=== PATIENT | female | born 1980 | race Hispanic/Latino ===

== ENCOUNTER 2020-11-08 15:45 | Emergency (ER) | payer MEDICAID ==
[2020-11-08 16:21] VITALS: BP 112/77
[2020-11-08 16:43] LABS: Basophils # (Auto) 0.1 K/mm3 (0.0-0.1); Basophils % (Auto) 0.6 % (0.0-1.8); Eosinophils # (Auto) 0.1 K/mm3 (0.0-0.4); Eosinophils % (Auto) 0.6 % (0.0-4.3); Hematocrit 29.8 % (30.3-42.9); Lymphocytes # (Auto) 1.4 K/mm3 (1.2-5.4); Lymphocytes % (Auto) 9.3 % (13.4-35.0); Mean Corpuscular HGB Conc 30 % (30-34); Monocytes # (Auto) 1.2 K/mm3 (0.0-0.8); Monocytes % (Auto) 8.1 % (0.0-7.3); Platelet Count 571 K/mm3 (140-440); Red Blood Count 4.44 M/mm3 (3.65-5.03); Red Cell Distribution Width 17.6 % (13.2-15.2)
[2020-11-08 16:45] LABS: Mean Corpuscular Volume 67 fl (79-97)
[2020-11-08 17:06] LABS: Alanine Aminotransferase 25 units/L (7-56); Blood Urea Nitrogen 8 mg/dL (7-17); Calcium 9.1 mg/dL (8.4-10.2); Hemolysis Index 1
[2020-11-08 17:07] LABS: BUN/Creatinine Ratio 16
[2020-11-08 17:11] LABS: Bacteria,Urine 1+ /HPF (Negative); Mucus,Urine FEW /HPF
--- NOTE | 2020-11-08 17:20 | Emergency Department Report ---
ED General Adult HPI - General Chief complaint: Abdominal Pain Stated complaint: ABD PAIN Time Seen by Provider: 11/08/20 16:59 Source: patient Mode of arrival: Ambulatory Limitations: No Limitations - History of Present Illness Initial comments: 40-year-old female patient presents with complaints of lower abdominal pain x 1 week. She does admit to vaginal discharge and urinary frequency and dysuria, but denies any hematuria, abnormal vaginal bleeding, fever/chills/sweats, nausea/vomiting/diarrhea, constipation, chest pain, or shortness of breath. Patient rates her pain as a 8/10 in severity. Past surgical history includes a . Last menstrual cycle was last week. She does admit to being currently sexually active - Related Data Allergies Allergy/AdvReac Type Severity Reaction Status Date / Time No Known Allergies Allergy Unverified 11/08/20 16:16 ED Review of Systems ROS: Stated complaint: ABD PAIN Other details as noted in HPI Constitutional: denies: chills, fever, malaise ENT: denies: throat pain Respiratory: denies: cough, shortness of breath Cardiovascular: denies: chest pain Gastrointestinal: abdominal pain. denies: nausea, vomiting, diarrhea, constipation Genitourinary: dysuria, frequency, discharge. denies: hematuria, abnormal menses Musculoskeletal: back pain Neurological: denies: headache, weakness Hematological/Lymphatic: denies: easy bleeding, swollen glands ED Past Medical Hx - Past Medical History Previous Medical History?: Yes Additional medical history: hypoglycemia - Surgical History Past Surgical History?: Yes Additional Surgical History: . kidney stone removal - Social History Smoking Status: Current Every Day Smoker Substance Use Type: None ED Physical Exam - General Limitations: No Limitations General appearance: alert, in no apparent distress - Head Head exam: Present: atraumatic, normocephalic - Eye Eye exam: Present: normal appearance. Absent: scleral icterus - Neck Neck exam: Present: full ROM - Respiratory Respiratory exam: Present: normal lung sounds bilaterally. Absent: respiratory distress - Cardiovascular Cardiovascular Exam: Present: regular rate, normal rhythm - GI/Abdominal GI/Abdominal exam: Present: soft, tenderness (Suprapubic), normal bowel sounds. Absent: distended, guarding, rebound, rigid - External exam: Present: normal external exam Speculum exam: Present: vaginal discharge. Absent: vaginal bleeding Bi-manual exam: Present: cervical motion tendernes. Absent: adnexal mass - Extremities Exam Extremities exam: Present: full ROM - Back Exam Back exam: Present: CVA tenderness (R), CVA tenderness (L) - Neurological Exam Neurological exam: Present: alert, oriented X3 - Psychiatric Psychiatric exam: Present: normal affect, normal mood - Skin Skin exam: Present: warm, dry, intact, normal color. Absent: rash, cyanosis, diaphoretic, ecchymosis ED Course Vital Signs 11/08/20 16:17 Temperature 98.2 F Pulse Rate 94 H Respiratory 16 Rate Blood Pressure 112/77 O2 Sat by Pulse 100 Oximetry ED Medical Decision Making - Lab Data Result diagrams: 11/08/20 16:34 11/08/20 16:34 Lab Results 11/08/20 11/08/20 11/08/20 Range/Units 16:26 16:34 16:34 WBC 15.0 H (4.5-11.0) K/mm3 RBC 4.44 (3.65-5.03) M/mm3 Hgb 9.0 L (10.1-14.3) gm/dl Hct 29.8 L (30.3-42.9) % MCV 67 L (79-97) fl MCH 20 L (28-32) pg MCHC 30 (30-34) % RDW 17.6 H (13.2-15.2) % Plt Count 571 H (140-440) K/mm3 Lymph % (Auto) 9.3 L (13.4-35.0) % [place] % (Auto) 8.1 H (0.0-7.3) % Eos % (Auto) 0.6 (0.0-4.3) % Baso % (Auto) 0.6 (0.0-1.8) % Lymph # (Auto) 1.4 (1.2-5.4) K/mm3 [place] # (Auto) 1.2 H (0.0-0.8) K/mm3 Eos # (Auto) 0.1 (0.0-0.4) K/mm3 Baso # (Auto) 0.1 (0.0-0.1) K/mm3 Seg Neutrophils % 81.4 H (40.0-70.0) % Seg Neutrophils # 12.2 H (1.8-7.7) K/mm3 Sodium 132 L (137-145) mmol/L Potassium 3.8 (3.6-5.0) mmol/L Chloride 98.0 (98-107) mmol/L Carbon Dioxide 27 (22-30) mmol/L Anion Gap 11 mmol/L BUN 8 (7-17) mg/dL Creatinine 0.5 L (0.6-1.2) mg/dL Estimated GFR > 60 ml/min BUN/Creatinine Ratio 16 % Glucose 92 (65-100) mg/dL Calcium 9.1 (8.4-10.2) mg/dL Total Bilirubin 0.30 (0.1-1.2) mg/dL AST 26 (5-40) units/L ALT 25 (7-56) units/L Alkaline Phosphatase 73 (35-129) units/L Total Protein 6.8 (6.3-8.2) g/dL Albumin 4.0 (3.9-5) g/dL Albumin/Globulin Ratio 1.4 % HCG, Qual (Negative) Urine Color Yellow (Yellow) Urine Turbidity Slightly-cloudy (Clear) Urine pH 6.0 (5.0-7.0) Ur Specific [place] 1.016 (1.003-1.030) Urine Protein <15 mg/dl (Negative) mg/dL Urine Glucose (UA) Neg (Negative) mg/dL Urine Ketones Neg (Negative) mg/dL Urine Blood Mod (Negative) Urine Nitrite Pos (Negative) Ur Reducing Substances Not Reportable Urine Bilirubin Neg (Negative) Urine Ictotest Not Reportable Urine Urobilinogen < 2.0 (<2.0) mg/dL Ur Leukocyte Esterase Lg (Negative) Urine WBC (Auto) 33.0 H (0.0-6.0) /HPF Urine RBC (Auto) 7.0 (0.0-6.0) /HPF U Epithel Cells (Auto) 8.0 (0-13.0) /HPF Urine Bacteria (Auto) 1+ (Negative) /HPF Urine Mucus Few /HPF Urine Yeast (Budding) 1+ /HPF 03/03/ Range/Units 16:34 WBC (4.5-11.0) K/mm3 RBC (3.65-5.03) M/mm3 Hgb (10.1-14.3) gm/dl Hct (30.3-42.9) % MCV (79-97) fl MCH (28-32) pg MCHC (30-34) % RDW (13.2-15.2) % Plt Count (140-440) K/mm3 Lymph % (Auto) (13.4-35.0) % [place] % (Auto) (0.0-7.3) % Eos % (Auto) (0.0-4.3) % Baso % (Auto) (0.0-1.8) % Lymph # (Auto) (1.2-5.4) K/mm3 [place] # (Auto) (0.0-0.8) K/mm3 Eos # (Auto) (0.0-0.4) K/mm3 Baso # (Auto) (0.0-0.1) K/mm3 Seg Neutrophils % (40.0-70.0) % Seg Neutrophils # (1.8-7.7) K/mm3 Sodium (137-145) mmol/L Potassium (3.6-5.0) mmol/L Chloride (98-107) mmol/L Carbon Dioxide (22-30) mmol/L Anion Gap mmol/L BUN (7-17) mg/dL Creatinine (0.6-1.2) mg/dL Estimated GFR ml/min BUN/Creatinine Ratio % Glucose (65-100) mg/dL Calcium (8.4-10.2) mg/dL Total Bilirubin (0.1-1.2) mg/dL AST (5-40) units/L ALT (7-56) units/L Alkaline Phosphatase (35-129) units/L Total Protein (6.3-8.2) g/dL Albumin (3.9-5) g/dL Albumin/Globulin Ratio % HCG, Qual Negative (Negative) Urine Color (Yellow) Urine Turbidity (Clear) Urine pH (5.0-7.0) Ur Specific [place] (1.003-1.030) Urine Protein (Negative) mg/dL Urine Glucose (UA) (Negative) mg/dL Urine Ketones (Negative) mg/dL Urine Blood (Negative) Urine Nitrite (Negative) Ur Reducing Substances Urine Bilirubin (Negative) Urine Ictotest Urine Urobilinogen (<2.0) mg/dL Ur Leukocyte Esterase (Negative) Urine WBC (Auto) (0.0-6.0) /HPF Urine RBC (Auto) (0.0-6.0) /HPF U Epithel Cells (Auto) (0-13.0) /HPF Urine Bacteria (Auto) (Negative) /HPF Urine Mucus /HPF Urine Yeast ([place]) /HPF - Medical Decision Making 40-year-old female patient presents with complaints of lower abdominal pain x 1 week. She does admit to vaginal discharge and urinary frequency and dysuria, but denies any hematuria, abnormal vaginal bleeding, fever/chills/sweats, nausea/vomiting/diarrhea, constipation, chest pain, or shortness of breath. Patient rates her pain as a 8/10 in severity. Past surgical history includes a . Last menstrual cycle was last week. She does admit to being currently sexually active + CMT on exam. UA shows 33 WBCs and + nitrites. CBC shows elevated WBCs at 15. No significant abnormalities noted on CMP. + CVA tenderness noted bilaterally on exam. Wet prep shows+ BV. Attempted treatment for pyelonephritis and PID, however patient eloped prior to medication administration. Contacted patient via phone and she states she eloped to go home and lay down. Explained that it was very important for patient to return to the emergency department for IV antibiotics and prescriptions for home antibiotics and further instructions for PID and pyelonephritis, patient states understanding and states she will return to the emergency department. Patient also informed that she needs a CAT scan of her abdomen to further assess her pain. Critical care attestation.: If time is entered above; I have spent that time in minutes in the direct care of this critically ill patient, excluding procedure time. ED Disposition Clinical Impression: Pyelonephritis, PID (acute pelvic inflammatory disease) Disposition: ELOPED Is pt being admited?: No Condition: Stable Instructions: Abdominal Pain (ED)
[2020-11-08 17:24] LABS: Bilirubin,Urine NEG (Negative); Blood,Urine MOD (Negative); Color,Urine Yellow (Yellow); Protein,Urine <15 mg/dL mg/dL (Negative); Urobilinogen,Urine < 2.0 mg/dL (<2.0)
[2020-11-08] MEDS ORDERED: ONDANSETRON 4 MG/2 ML INJ IV ONE (18:14)
[2020-11-08] MEDS ORDERED: MORPHINE 4 MG/1 ML INJ IV ONE (18:14)
[2020-11-08] MEDS ORDERED: cefTRIAXone/NS 1 GM/50 ML 1 GM/50 ML BAG IV ONE (18:16)
[2020-11-08] MEDS ORDERED: SODIUM CHLORIDE 0.9% 1000 ML 1,000 ML IV ONE (18:59)
== END 2020-11-08 18:15 | disposition left against medical advice (07) ==
LOC: ED 15:45
DX: N12 Tubulo-interstitial nephritis, not specified as acute or chronic (principal); N73.0 Acute parametritis and pelvic cellulitis; F17.200 Nicotine dependence, unspecified, uncomplicated; Z98.890 Other specified postprocedural states
CPT/HCPCS: 36415; 80053; 81001; 84703; 85025; 87086; 87210; 87591; 99283

== ENCOUNTER 2020-11-10 21:05 | Observation (INO) | payer MEDICAID ==
[2020-11-10 22:05] LABS: Basophils # (Auto) 0.1 K/mm3 (0.0-0.1); Basophils % (Auto) 0.7 % (0.0-1.8); Eosinophils # (Auto) 0.1 K/mm3 (0.0-0.4); Eosinophils % (Auto) 0.6 % (0.0-4.3); Hematocrit 29.9 % (30.3-42.9); Hemoglobin 9.3 gm/dl (10.1-14.3); Lymphocytes # (Auto) 1.7 K/mm3 (1.2-5.4); Lymphocytes % (Auto) 11.3 % (13.4-35.0); Mean Corpuscular HGB Conc 31 % (30-34); Monocytes # (Auto) 1.9 K/mm3 (0.0-0.8); Monocytes % (Auto) 12.2 % (0.0-7.3); Platelet Count 536 K/mm3 (140-440); Red Blood Count 4.55 M/mm3 (3.65-5.03); Red Cell Distribution Width 17.2 % (13.2-15.2)
[2020-11-10 22:11] LABS: Mean Corpuscular Volume 66 fl (79-97)
[2020-11-10 22:25] LABS: Alanine Aminotransferase 20 units/L (7-56); Albumin 3.8 g/dL (3.9-5); Blood Urea Nitrogen 6 mg/dL (7-17); Calcium 9.2 mg/dL (8.4-10.2); Hemolysis Index 5
[2020-11-10 22:26] LABS: BUN/Creatinine Ratio 10
[2020-11-11 00:18] LABS: Bilirubin,Urine NEG (Negative); Blood,Urine LG (Negative); Color,Urine Yellow (Yellow); Mucus,Urine 1+ /HPF; Urobilinogen,Urine < 2.0 mg/dL (<2.0)
[2020-11-11 00:19] LABS: RBC,Urine > 182.0 /HPF (0.0-6.0)
[2020-11-11] MEDS ORDERED: ONDANSETRON 4 MG/2 ML INJ IV ONE (00:39)
[2020-11-11] MEDS ORDERED: SODIUM CHLORIDE 0.9% 1000 ML 1,000 ML IV ONE (00:39)
[2020-11-11] MEDS ORDERED: MORPHINE 4 MG/1 ML INJ IV ONE (00:39)
--- NOTE | 2020-11-11 02:01 | Cat Scan Report ---
CT abdomen pelvis w con INDICATION: severe lower abdominal pain leukocytosis. TECHNIQUE: All CT scans at this location are performed using the following dose modulation technique: Automated exposure control. CONTRAST: Omnipaque 300, 100 cc IV injection. COMPARISON: None available. CT ABDOMEN: Evaluation of the parenchymal organs demonstrates a subcentimeter low-density lesion at t he right hepatic lobe. The remaining parenchymal organs are unremarkable. Negative for abdominal mass, fluid or inflammation. The bowel is not dilated or thickened. Mildly pro minent nodes are seen adjacent to the aorta. CT PELVIS: Tubular fluid-filled structures are seen bilaterally right greater than left at the adnexa . These are thought to be dilated fallopian tubes. The tube on the right has a maximal length of 10 c m and is focally thickened measuring 3.3 cm. There is inflammation seen throughout the pelvis diffuse ly. What is thought to be a portion of a normal appendix is identified. The uterus contains an IUD. IMPRESSION: 1. Fluid-filled structures at the adnexa bilaterally with diffuse pelvic inflammation. Pelvic inflamm atory disease with tubal involvement right greater than left is suspected. 2. Small liver lesion is not well characterized but likely incidental. 3. Mild retroperitoneal adenopathy may be reactive. Signer Name: Naseem Hoffman MD Signed: 11/11/2020 1:57 AM Workstation Name: [id number]
--- NOTE | 2020-11-11 02:27 | Emergency Department Report ---
ED Abdominal Pain HPI - General Chief Complaint: Abdominal Pain Stated Complaint: ABDOMINAL PAIN PUI?: No Time Seen by Provider: 11/11/20 00:25 Source: patient Mode of arrival: Ambulatory Limitations: No Limitations - History of Present Illness Initial Comments: Chief complaint: Abdominal pain HPI: This is a healthy 40-year-old female who was at 3 days of abdominal pain. Right lower quadrant left lower quadrant radiating to lower back. She was seen 2 days ago. She eloped without completing treatment. She has cramping 8 or 9 intermittent abdominal pain. She initially had vaginal discharge. She now has vaginal bleeding. She has IUD in place. IUD has been in place for 18 years. The IUD was recommended to stay in for only 10 years. Patient has had chills. She has had 2 days of diarrhea. Pain is worse with walking. When a car hits a bump in a row, the pain is worse. She has to walk slowly in order to avoid severe pain MD Complaint: abdominal pain -: Gradual, days(s) (3) Location: LLQ Radiation: back Severity scale (0 -10): 9 Quality: cramping Consistency: constant Improves With: nothing Worsens With: movement Associated Symptoms: diarrhea - Related Data Allergies Allergy/AdvReac Type Severity Reaction Status Date / Time No Known Allergies Allergy Unverified 11/08/20 16:16 ED Review of Systems ROS: Stated complaint: ABDOMINAL PAIN Other details as noted in HPI Comment: All other systems reviewed and negative Constitutional: chills. denies: fever, malaise Gastrointestinal: abdominal pain, diarrhea Genitourinary: discharge ED Past Medical Hx - Past Medical History Previous Medical History?: Yes Additional medical history: hypoglycemia - Surgical History Past Surgical History?: Yes Additional Surgical History: . kidney stone removal - Social History Smoking Status: Current Every Day Smoker Substance Use Type: Alcohol ED Physical Exam - General Limitations: No Limitations General appearance: alert, in no apparent distress, other (Nontoxic-appearing but appears uncomfortable especially with position change) - Head Head exam: Present: atraumatic, normocephalic - Eye Eye exam: Present: normal appearance - ENT ENT exam: Present: mucous membranes moist - Neck Neck exam: Present: normal inspection, full ROM - Respiratory Respiratory exam: Present: normal lung sounds bilaterally. Absent: respiratory distress, wheezes, rales, rhonchi - Cardiovascular Cardiovascular Exam: Present: normal rhythm, tachycardia, normal heart sounds. Absent: systolic murmur, diastolic murmur, rubs, gallop - GI/Abdominal GI/Abdominal exam: Present: soft, tenderness, normal bowel sounds. Absent: distended, guarding, rebound - Extremities Exam Extremities exam: Present: normal inspection - Neurological Exam Neurological exam: Present: alert, oriented X3 - Psychiatric Psychiatric exam: Present: normal affect, normal mood - Skin Skin exam: Present: warm, dry, intact, normal color. Absent: rash ED Course Vital Signs 11/10/20 11/11/20 11/11/20 21:50 00:32 00:50 Temperature 98.4 F Pulse Rate 106 H 98 H Respiratory 16 16 16 Rate Blood Pressure 112/81 Blood Pressure 99/63 [Left] O2 Sat by Pulse 100 100 Oximetry 11/11/20 02:03 Temperature Pulse Rate 89 Respiratory 16 Rate Blood Pressure Blood Pressure 109/70 [Left] O2 Sat by Pulse 98 Oximetry ED Medical Decision Making - Lab Data Result diagrams: 11/10/20 21:53 11/10/20 21:53 - Medical Decision Making Clinical Impression: PID with severe pain, confirmed by CT scan, Complicated by IUD which has been in place for 18 years Bilingual Customer Service Specialist Dr. Leary will see patient in consult Patient is admitted to hospitalist service Critical care attestation.: If time is entered above; I have spent that time in minutes in the direct care of this critically ill patient, excluding procedure time. ED Disposition Clinical Impression: PID (acute pelvic inflammatory disease), IUD (intrauterine device) in place Disposition: OP ADMIT IP TO THIS HOSP Is pt being admited?: Yes Does the pt Need Aspirin: No Condition: Stable Instructions: Abdominal Pain (ED)
[2020-11-11] MEDS ORDERED: DOXYCYCLINE 100 MG CAP PO ONE (02:31)
[2020-11-11] MEDS ORDERED: CEFEPIME/NS 2 GM/100 ML 2 GM/100 ML BAG IV ONE (02:31)
--- NOTE | 2020-11-11 03:39 | Ultrasound Report ---
PELVIC ULTRASOUND HISTORY: Pelvic inflammatory disease. COMPARISON: CT examination earlier the same day. PROCEDURE: Uterus measures 10.6 x 5.3 x 7.4 cm. The endometrial cavity is filled by an IUD. No intrac avitary fluid is present. Right ovary measures 7.4 x 3.9 x 5.2 cm. 2 cysts are identified measuring 3.5 and 2 cm. A 2 cm cyst a ppears complex. Left ovary measures 6 x 4.6 x 4.4 cm. Several cysts are present with the larger measuring 2.5 and 2.4 cm. A small amount of free fluid is seen at the cul-de-sac. IMPRESSION: 1. Uterus unremarkable in appearance. 2. Ovaries are prominent contain cysts. The areas that are thought to be fluid-filled fallopian tubes by CT are not well seen with ultrasound. Signer Name: Naseem Hoffman MD Signed: 11/11/2020 3:35 AM Workstation Name: [id number]
--- NOTE | 2020-11-11 03:56 | History and Physical Report ---
History of Present Illness Date of examination: 11/11/20 Date of admission: 11/11/20 02:36 Chief complaint: pelvis pain History of present illness: HPI: This is a healthy 40-year-old female who was at 3 days of abdominal pain. Right lower quadrant left lower quadrant radiating to lower back. She was seen 2 days ago. She eloped without completing treatment. She has cramping 8 or 9 intermittent abdominal pain. She initially had vaginal discharge. She is alre helen on has vaginal bleeding. She has IUD in place. IUD has been in place for 18 years. The IUD was recommended to stay in for only 10 years. Patient has had chills. She has had 2 days of diarrhea. Pain is worse with walking. When a car hits a bump in a row, the pain is worse. She has to walk slowly in order to avoid severe pain ED work-up shows WBC 15.4, hemoglobin 9.3 sodium, 131, potassium 3.5, creatinine 0.6 Platelets 536, glucose 105, urine WBC 60 ultrasound of the abdomen showed fluid favored structure at the adnexa bilaterally with diffuse pelvic inflammatory process. Patient seen in ED at bedside. She reports abdominal pain that is ongoing. She reported a history of IUD placement 18 years ago and have not been removed. Reviewed lab, medication administration record, and vital signs. CUTTING MACHINE OFFBEARER and ID consulted elevated WBC. Past History Past Medical History: hypertension Past Surgical History: denies: hysterectomy, hernia repair Social history: smoking. denies: alcohol abuse, IV drug use Family history: no significant family history Medications and Allergies Allergies Allergy/AdvReac Type Severity Reaction Status Date / Time No Known Allergies Allergy Unverified 11/08/20 16:16 Review of Systems Constitutional: no malaise Ears, nose, mouth and throat: no epistaxis Cardiovascular: no claudication Respiratory: no congestion Gastrointestinal: abdominal pain Genitourinary Female: no dyspareunia Menstruation: no currently menstrual Musculoskeletal: no muscle weakness Integumentary: no rash, no pruritis Neurological: no head injury Exam - Constitutional Vitals: Temp Pulse Resp BP Pulse Ox 98.4 F 89 16 109/70 98 11/10/20 21:50 11/11/20 02:03 11/11/20 02:03 11/11/20 02:03 11/11/20 02:03 General appearance: Present: mild distress, well-nourished - EENT Eyes: Present: PERRL ENT: hearing intact, clear oral mucosa - Neck Neck: Present: supple, normal ROM - Respiratory Respiratory effort: normal Respiratory: bilateral: CTA - Cardiovascular Heart rate: 82 Heart Sounds: Present: S1 & S2. Absent: rub, click - Extremities Extremities: pulses symmetrical, No edema Peripheral Pulses: within normal limits - Abdominal General gastrointestinal: Present: soft, tender, non-distended, normal bowel sounds Female genitourinary: Present: normal - Integumentary Integumentary: Present: clear, warm, dry - Musculoskeletal Musculoskeletal: gait normal, strength equal bilaterally - Psychiatric Psychiatric: appropriate mood/affect, intact judgment & insight, cooperative - Neurologic Neurologic: CNII-XII intact, moves all extremities - Allied Health Allied health notes reviewed: nursing Results - Labs CBC & Chem 7: 11/10/20 21:53 11/10/20 21:53 Labs: Abnormal lab results 11/10/20 11/10/20 11/10/20 Range/Units 21:52 21:53 21:53 WBC 15.4 H (4.5-11.0) K/mm3 Hgb 9.3 L (10.1-14.3) gm/dl Hct 29.9 L (30.3-42.9) % MCV 66 L (79-97) fl MCH 21 L (28-32) pg RDW 17.2 H (13.2-15.2) % Plt Count 536 H (140-440) K/mm3 Lymph % (Auto) 11.3 L (13.4-35.0) % [place] % (Auto) 12.2 H (0.0-7.3) % [place] # (Auto) 1.9 H (0.0-0.8) K/mm3 Seg Neutrophils % 75.2 H (40.0-70.0) % Seg Neutrophils # 11.6 H (1.8-7.7) K/mm3 Sodium 131 L (137-145) mmol/L Potassium 3.5 L (3.6-5.0) mmol/L Chloride 96.7 L (98-107) mmol/L BUN 6 L (7-17) mg/dL Glucose 105 H (65-100) mg/dL Albumin 3.8 L (3.9-5) g/dL Urine WBC (Auto) 60.0 H (0.0-6.0) /HPF Assessment and Plan - Patient Problems (1) PID (acute pelvic inflammatory disease) Current Visit: Yes Status: Acute Plan to address problem: Continue IV antibiotics ID consult with. Blood culture ordered follow-up with results CT of the abdomen/pelvis shows fluid-filled structure at the adnexa bilaterally with diffuse pelvis inflammation. (2) Pyelonephritis Current Visit: No Status: Acute Plan to address problem: Urine culture Continue IV antibiotic (3) Tobacco use Current Visit: Yes Status: Acute Plan to address problem: Discussed tobacco use cessation Cardiovascular and neoplasm syndrome of tobacco use explained to patient (4) IUD (intrauterine device) in place Current Visit: Yes Status: Acute Plan to address problem: Patient has reports history of IUD placement 18 years ago CUTTING MACHINE OFFBEARER consulted (5) DVT prophylaxis Current Visit: Yes Status: Acute Plan to address problem: Subcutaneous Lovenox
[2020-11-11] MEDS ORDERED: MAGNESIUM HYDROXIDE (MOM) ORAL LIQD UDC PO PRN (04:04)
[2020-11-11] MEDS ORDERED: SENNOSIDES 8.6 MG TAB PO PRN (04:04)
[2020-11-11] MEDS ORDERED: HYDROmorphone 1 MG/1 ML INJ IV PRN (04:04)
[2020-11-11] MEDS ORDERED: ONDANSETRON 4 MG/2 ML INJ IV PRN (04:04)
[2020-11-11] MEDS ORDERED: ACETAMINOPHEN 325 MG TAB PO PRN ×2 (04:04)
[2020-11-11] MEDS ORDERED: SODIUM CHLORIDE 0.9% 1000 ML 1,000 ML IV SCH (04:15)
[2020-11-11] MEDS ORDERED: CEFEPIME/NS 2 GM/100 ML 2 GM/100 ML BAG IV SCH (06:00)
--- NOTE | 2020-11-11 08:58 | Progress Note ---
Assessment and Plan Assessment and plan: PID. CT scan reveals fluid-filled structures in the adnexa bilaterally with diffuse pelvic inflammatory disease with tubal involvement right greater than left. Patient also with associated mild retroperitoneal reactive adenopathy Acute cystitis. Sepsis. Patient meets criteria given the leukocytosis, tachycardia and diagnosis of cystitis/PID. 11/11/2020. Continue sepsis protocol. Follow-up blood and urine cultures. Continue IV antibiotics. Consult ID and PLAYER SERVICES REPRESENTATIVE for further evaluation. History Interval history: 40-year-old with abdominal and back pain. Hospitalist Physical - Constitutional Vitals: Temp Pulse Resp BP Pulse Ox 98.4 F 89 16 106/64 98 11/11/20 06:42 11/11/20 06:42 11/11/20 06:42 11/11/20 06:42 11/11/20 06:42 General appearance: Present: mild distress, well-nourished - EENT Eyes: Present: PERRL, EOM intact ENT: hearing intact, clear oral mucosa, dentition normal - Neck Neck: Present: supple, normal ROM - Respiratory Respiratory effort: normal Respiratory: bilateral: CTA - Cardiovascular Rhythm: regular Heart Sounds: Present: S1 & S2. Absent: gallop, rub - Extremities Extremities: no ischemia, No edema, Full ROM - Abdominal General gastrointestinal: soft, non-tender, non-distended, normal bowel sounds - Integumentary Integumentary: Present: clear, warm, dry - Neurologic Neurologic: CNII-XII intact, moves all extremities Results - Labs CBC & Chem 7: 11/10/20 21:53 11/10/20 21:53 Labs: Laboratory Last Values WBC 15.4 K/mm3 (4.5-11.0) H 11/10/20 21:53 RBC 4.55 M/mm3 (3.65-5.03) 11/10/20 21:53 Hgb 9.3 gm/dl (10.1-14.3) L 11/10/20 21:53 Hct 29.9 % (30.3-42.9) L 11/10/20 21:53 MCV 66 fl (79-97) L 11/10/20 21:53 MCH 21 pg (28-32) L 11/10/20 21:53 MCHC 31 % (30-34) 11/10/20 21:53 RDW 17.2 % (13.2-15.2) H 11/10/20 21:53 Plt Count 536 K/mm3 (140-440) H 11/10/20 21:53 Lymph % (Auto) 11.3 % (13.4-35.0) L 11/10/20 21:53 Jewell % (Auto) 12.2 % (0.0-7.3) H 11/10/20 21:53 Eos % (Auto) 0.6 % (0.0-4.3) 11/10/20 21:53 Baso % (Auto) 0.7 % (0.0-1.8) 11/10/20 21:53 Lymph # (Auto) 1.7 K/mm3 (1.2-5.4) 11/10/20 21:53 Jewell # (Auto) 1.9 K/mm3 (0.0-0.8) H 11/10/20 21:53 Eos # (Auto) 0.1 K/mm3 (0.0-0.4) 11/10/20 21:53 Baso # (Auto) 0.1 K/mm3 (0.0-0.1) 11/10/20 21:53 Seg Neutrophils % 75.2 % (40.0-70.0) H 11/10/20 21:53 Seg Neutrophils # 11.6 K/mm3 (1.8-7.7) H 11/10/20 21:53 Sodium 131 mmol/L (137-145) L 11/10/20 21:53 Potassium 3.5 mmol/L (3.6-5.0) L 11/10/20 21:53 Chloride 96.7 mmol/L (98-107) L 11/10/20 21:53 Carbon Dioxide 24 mmol/L (22-30) 11/10/20 21:53 Anion Gap 14 mmol/L 11/10/20 21:53 BUN 6 mg/dL (7-17) L 11/10/20 21:53 Creatinine 0.6 mg/dL (0.6-1.2) 11/10/20 21:53 Estimated GFR > 60 ml/min 11/10/20 21:53 BUN/Creatinine Ratio 10 % 11/10/20 21:53 Glucose 105 mg/dL (65-100) H 11/10/20 21:53 Calcium 9.2 mg/dL (8.4-10.2) 11/10/20 21:53 Total Bilirubin 0.20 mg/dL (0.1-1.2) 11/10/20 21:53 AST 12 units/L (5-40) 11/10/20 21:53 ALT 20 units/L (7-56) 11/10/20 21:53 Alkaline Phosphatase 97 units/L (35-129) 11/10/20 21:53 Total Protein 6.7 g/dL (6.3-8.2) 11/10/20 21:53 Albumin 3.8 g/dL (3.9-5) L 11/10/20 21:53 Albumin/Globulin Ratio 1.3 % 11/10/20 21:53 Lipase 13 units/L (13-60) 11/10/20 21:53 HCG, Qual Negative (Negative) 11/10/20 21:53 Urine Color Yellow (Yellow) 11/10/20 21:52 Urine Turbidity Turbid (Clear) 11/10/20 21:52 Urine pH 6.0 (5.0-7.0) 11/10/20 21:52 Ur Specific [place] 1.023 (1.003-1.030) 11/10/20 21:52 Urine Protein 100 mg/dl mg/dL (Negative) 11/10/20 21:52 Urine Glucose (UA) 50 mg/dL (Negative) 11/10/20 21:52 Urine Ketones 20 mg/dL (Negative) 11/10/20 21:52 Urine Blood Lg (Negative) 11/10/20 21:52 Urine Nitrite Neg (Negative) 11/10/20 21:52 Urine Bilirubin Neg (Negative) 11/10/20 21:52 Urine Urobilinogen < 2.0 mg/dL (<2.0) 11/10/20 21:52 Ur Leukocyte Esterase Neg (Negative) 11/10/20 21:52 Urine WBC (Auto) 60.0 /HPF (0.0-6.0) H 11/10/20 21:52 Urine RBC (Auto) > 182.0 /HPF (0.0-6.0) 11/10/20 21:52 U Epithel Cells (Auto) 1.0 /HPF (0-13.0) 11/10/20 21:52 Urine Mucus 1+ /HPF 11/10/20 21:52 Urine Yeast (Budding) 1+ /HPF 11/10/20 21:52 Blood Type A POSITIVE 11/11/20 05:30 Antibody Screen Negative 11/11/20 05:30 Microbiology: Microbiology 11/11/20 05:29 Peripheral/Venous Blood Culture - Preliminary Culture in Progress 11/11/20 05:32 Peripheral/Venous Blood Culture - Preliminary Culture in Progress Active Medications - Current Medications Current Medications: Generic Name Dose Route Start Last Admin Trade Name Freq PRN Reason Stop Dose Admin Acetaminophen 650 mg 11/11/20 04:04 Acetaminophen 325 Mg Tab PO Q4H PRN Pain MILD(1-3)/Fever >100.5/CUEVA Famotidine 20 mg 11/11/20 10:00 Famotidine 20 Mg Tab PO BID JANAK Hydromorphone HCl 0.25 mg 11/11/20 04:04 Hydromorphone 1 Mg/1 Ml Inj IV Q4H PRN Pain, Moderate (4-6) Sodium Chloride 1,000 mls @ 100 mls/hr 11/11/20 04:15 Nacl 0.9% 1000 Ml IV DIRECT JANAK Cefepime HCl 2 gm in 100 mls @ 200 mls/hr 11/11/20 06:00 Cefepime/Ns 2 Gm/100 Ml IV Q12H JANAK Protocol Doxycycline Hyclate 100 mg/ 250 mls @ 250 mls/hr 11/11/20 10:00 Sodium Chloride IV Q12HR JANAK Protocol Magnesium Hydroxide 30 ml 11/11/20 04:04 Magnesium Hydroxide (Mom) Oral Liqd Udc PO Q4H PRN Constipation Ondansetron HCl 4 mg 11/11/20 04:04 Ondansetron 4 Mg/2 Ml Inj IV Q8H PRN Nausea And Vomiting Senna 8.6 mg 11/11/20 04:04 Sennosides 8.6 Mg Tab PO Q12HR PRN Constipation
[2020-11-11] MEDS ORDERED: DOXYCYCLINE HYCLATE 100 MG in SODIUM CHLORIDE 0.9% 250ML 250 ML IV SCH (10:00)
[2020-11-11] MEDS ORDERED: FAMOTIDINE 20 MG TAB PO SCH (10:00)
--- NOTE | 2020-11-11 12:48 | Consultation ---
History of Present Illness Consult date: 11/11/20 Reason for consult: pelvic pain History of present illness: 40y/o female who presents to the ED with the complaint of lower abdominal pain and vaginal discharge. CT scan findings consistent with PID. Patient has a retained IUD that has exceeded its effectiveness. She reports feeling better today. Denies any nausea or vomiting Medications and Allergies Allergies Allergy/AdvReac Type Severity Reaction Status Date / Time No Known Allergies Allergy Unverified 11/08/20 16:16 Home Medications Medication Instructions Recorded Confirmed Last Taken Type Doxycycline Hyclate [Doxycycline 100 mg PO BID #28 tablet 11/11/20 Unknown Rx Hyclate TAB] metroNIDAZOLE [Flagyl] 500 mg PO Q12HR #28 tab 11/11/20 Unknown Rx Active Meds: Active Medications Acetaminophen (Acetaminophen 325 Mg Tab) 650 mg PO Q4H PRN PRN Reason: Pain MILD(1-3)/Fever >100.5/CUEVA Famotidine (Famotidine 20 Mg Tab) 20 mg PO BID JANAK Last Admin: 11/11/20 09:24 Dose: 20 mg Documented by: Hydromorphone HCl (Hydromorphone 1 Mg/1 Ml Inj) 0.25 mg IV Q4H PRN PRN Reason: Pain, Moderate (4-6) Sodium Chloride (Nacl 0.9% 1000 Ml) 1,000 mls @ 100 mls/hr IV DIRECT JANAK Last Admin: 11/11/20 09:23 Dose: 100 mls/hr Documented by: Cefepime HCl (Cefepime/Ns 2 Gm/100 Ml) 2 gm in 100 mls @ 200 mls/hr IV Q12H JANAK; Protocol Last Infusion: 11/11/20 09:59 Dose: Infused Documented by: Doxycycline Hyclate 100 mg/ (Sodium Chloride) 250 mls @ 250 mls/hr IV Q12HR JANAK; Protocol Last Infusion: 11/11/20 11:30 Dose: Infused Documented by: Magnesium Hydroxide (Magnesium Hydroxide (Mom) Oral Liqd Udc) 30 ml PO Q4H PRN PRN Reason: Constipation Ondansetron HCl (Ondansetron 4 Mg/2 Ml Inj) 4 mg IV Q8H PRN PRN Reason: Nausea And Vomiting Senna (Sennosides 8.6 Mg Tab) 8.6 mg PO Q12HR PRN PRN Reason: Constipation Review of Systems Genitourinary: pelvic pain - Vital Signs Vital signs: Vital Signs Temp Pulse Resp BP Pulse Ox 98.4 F 106 H 16 112/81 100 11/10/20 21:50 11/10/20 21:50 11/10/20 21:50 11/10/20 21:50 11/10/20 21:50 Temp Pulse Resp BP Pulse Ox 98.4 F 89 16 106/64 98 11/11/20 06:42 11/11/20 06:42 11/11/20 06:42 11/11/20 06:42 11/11/20 06:42 - Physical Exam Breasts: Positive: deferred Cardiovascular: Regular rate Lungs: Positive: Clear to auscultation Results Result Diagrams: 11/10/20 21:53 11/10/20 21:53 Abnormal lab results 11/10/20 11/10/20 11/10/20 Range/Units 21:52 21:53 21:53 WBC 15.4 H (4.5-11.0) K/mm3 Hgb 9.3 L (10.1-14.3) gm/dl Hct 29.9 L (30.3-42.9) % MCV 66 L (79-97) fl MCH 21 L (28-32) pg RDW 17.2 H (13.2-15.2) % Plt Count 536 H (140-440) K/mm3 Lymph % (Auto) 11.3 L (13.4-35.0) % [place] % (Auto) 12.2 H (0.0-7.3) % [place] # (Auto) 1.9 H (0.0-0.8) K/mm3 Seg Neutrophils % 75.2 H (40.0-70.0) % Seg Neutrophils # 11.6 H (1.8-7.7) K/mm3 Sodium 131 L (137-145) mmol/L Potassium 3.5 L (3.6-5.0) mmol/L Chloride 96.7 L (98-107) mmol/L BUN 6 L (7-17) mg/dL Glucose 105 H (65-100) mg/dL Albumin 3.8 L (3.9-5) g/dL Urine WBC (Auto) 60.0 H (0.0-6.0) /HPF All other labs normal. Assessment and Plan - Patient Problems (1) PID (acute pelvic inflammatory disease) Current Visit: Yes Status: Acute Plan to address problem: patient is stable to continue remainder of treatment as outpatient prescriptions placed on chart patient may followup with PCP or our practice in 1-2 weeks
[2020-11-11 13:05] VITALS: BP 113/73
--- NOTE | 2020-11-11 13:55 | Consultation ---
History of Present Illness - Reason for Consult Consult date: 11/11/20 - History of Present Illness 40 female no past medical history admitted with abdominal pain. This began 3 days prior to admission and is located in the right lower quadrant and radiates to her lower back. She was initially seen 2 days ago but eloped without completing her treatment. She initially had some vaginal discharge and has some vaginal bleeding. She does have an IUD in place that has been in place for 18 years. Afebrile with a white count of 15.4. Blood cultures currently pending. Wet prep with no trichomonas, no yeast, greater than or equal to 20% clue cells urine cultures no growth so far. Imaging personally reviewed: CT abdomen pelvis: Fluid-filled structures of the adnexa bilaterally with diffu se pelvic inflammation. Retroperitoneal adenopathy. Transvaginal ultrasound: Uterus unremarkable. Review of Systems: Bold if positive, otherwise negative General: fevers, chills, rigors HEENT: visual disturbance, diplopia, eye pain Respiratory: cough, sputum, hemoptysis, shortness of breath Cardiovascular: chest pain, syncope Gastrointestinal: nausea, vomiting, diarrhea, abdominal pain Genitourinary: dysuria, hematuria, flank pain Musculoskeletal: neck pain, back pain, joint pain, edema Neurologic: headaches, seizures Hematologic: easy bruising or bleeding Endocrine: night sweats, acute weight loss Skin: rash, jaundice, redness Psychiatric: suicidal, homicidal ideation Past History Past Medical History: hypertension Past Surgical History: denies: hysterectomy, hernia repair Social history: smoking. denies: alcohol abuse, IV drug use Family history: no significant family history Medications and Allergies Allergies Allergy/AdvReac Type Severity Reaction Status Date / Time No Known Allergies Allergy Unverified 11/08/20 16:16 Home Medications Medication Instructions Recorded Confirmed Last Taken Type Doxycycline Hyclate [Doxycycline 100 mg PO BID #28 tablet 11/11/20 Unknown Rx Hyclate TAB] HYDROcodone/APAP 5-325 [[place] 1 each PO Q6HR PRN #15 tablet 11/11/20 Unknown Rx 5/325] Ibuprofen [Motrin] 800 mg PO Q8HR PRN #30 tablet 11/11/20 Unknown Rx metroNIDAZOLE [Flagyl] 500 mg PO Q12HR #28 tab 11/11/20 Unknown Rx Active Meds: Active Medications Acetaminophen (Acetaminophen 325 Mg Tab) 650 mg PO Q4H PRN PRN Reason: Pain MILD(1-3)/Fever >100.5/CUEVA Famotidine (Famotidine 20 Mg Tab) 20 mg PO BID [facility] Last Admin: 11/11/20 09:24 Dose: 20 mg Documented by: Hydromorphone HCl (Hydromorphone 1 Mg/1 Ml Inj) 0.25 mg IV Q4H PRN PRN Reason: Pain, Moderate (4-6) Sodium Chloride (Nacl 0.9% 1000 Ml) 1,000 mls @ 100 mls/hr IV DIRECT JANAK Last Admin: 11/11/20 09:23 Dose: 100 mls/hr Documented by: Cefepime HCl (Cefepime/Ns 2 Gm/100 Ml) 2 gm in 100 mls @ 200 mls/hr IV Q12H JANAK; Protocol Last Infusion: 11/11/20 09:59 Dose: Infused Documented by: Doxycycline Hyclate 100 mg/ (Sodium Chloride) 250 mls @ 250 mls/hr IV Q12HR JANAK; Protocol Last Infusion: 11/11/20 11:30 Dose: Infused Documented by: Magnesium Hydroxide (Magnesium Hydroxide (Mom) Oral Liqd Udc) 30 ml PO Q4H PRN PRN Reason: Constipation Ondansetron HCl (Ondansetron 4 Mg/2 Ml Inj) 4 mg IV Q8H PRN PRN Reason: Nausea And Vomiting Senna (Sennosides 8.6 Mg Tab) 8.6 mg PO Q12HR PRN PRN Reason: Constipation Physical Examination - Physical Exam Narrative exam: Physical Exam: Constitutional: Alert, cooperative. No acute distress Head, Ears, Nose: Normocephalic, atraumatic. External ears, nose normal Eyes: Conjunctivae/corneas clear. No icterus. No ptosis. Neck: Supple, no meningeal signs Oral: dentition fair, no thrush Cardiovascular: S1, S2 normal. Respiratory: Good air entry, clear to auscultation bilaterally GI: Soft, +tender; bowel sounds normal. No peritoneal signs. Musculoskeletal: No pedal edema, no cyanosis. Skin: No rash or abscess Hem/Lymphatic: No palpable cervical or supraclavicular nodes. No lymphangitis Psych: Mood ok. Affect normal Neurological: Awake, alert, oriented. No gross abnormality - Constitutional Vitals: Vital Signs Temp Pulse Resp BP Pulse Ox 98.1 F 89 20 113/73 99 11/11/20 12:05 11/11/20 12:05 11/11/20 12:05 11/11/20 12:05 11/11/20 12:05 Temperature -Last 24 Hours Temperature 98.1 F Temperature 98.4 F Temperature 98.4 F Temperature 97.9 F Temperature 98.4 F Results - Labs CBC & Chem 7: 11/10/20 21:53 11/10/20 21:53 Labs: Abnormal lab results 11/10/20 11/10/20 11/10/20 Range/Units 21:52 21:53 21:53 WBC 15.4 H (4.5-11.0) K/mm3 Hgb 9.3 L (10.1-14.3) gm/dl Hct 29.9 L (30.3-42.9) % MCV 66 L (79-97) fl MCH 21 L (28-32) pg RDW 17.2 H (13.2-15.2) % Plt Count 536 H (140-440) K/mm3 Lymph % (Auto) 11.3 L (13.4-35.0) % [place] % (Auto) 12.2 H (0.0-7.3) % [place] # (Auto) 1.9 H (0.0-0.8) K/mm3 Seg Neutrophils % 75.2 H (40.0-70.0) % Seg Neutrophils # 11.6 H (1.8-7.7) K/mm3 Sodium 131 L (137-145) mmol/L Potassium 3.5 L (3.6-5.0) mmol/L Chloride 96.7 L (98-107) mmol/L BUN 6 L (7-17) mg/dL Glucose 105 H (65-100) mg/dL Albumin 3.8 L (3.9-5) g/dL Urine WBC (Auto) 60.0 H (0.0-6.0) /HPF Assessment and Plan Cultures: Blood culture no growth so far Urine culture no growth Wet prep with clue cells A/P: 40-year-old female no past medical history admitted with pelvic inf lammatory disease #Acute sepsis: Present with tachycardia and leukocytosis. Secondary to pelvic inflammatory disease #Pelvic inflammatory disease: Associated with IUD in place for 18 years. Maxwell scales on wet prep associated bacterial vaginosis #Bacterial vaginosis Recs: -Recommend removal of IUD given infection -Ordered urinary gonorrhea and chlamydia -De-escalate cefepime to ceftriaxone 2 g every 24 hours -Continue doxycycline -Added metronidazole for bacterial vaginosis -Follow white count Thank you for the consult, we will continue to follow. Nicole Rendon MD [facility] O: [phone] F: [phone]
[2020-11-11] MEDS ORDERED: metroNIDAZOLE/NS 500 MG/100 ML 500 MG/100 ML BAG IV SCH (15:00)
[2020-11-11] MEDS ORDERED: cefTRIAXone/NS 2 GM/100 ML 2 GM/100 ML BAG IV SCH (15:00)
--- NOTE | 2020-11-13 09:57 | Discharge Summary ---
Providers - Providers Date of Admission: 11/11/20 02:36 Date of discharge: 11/11/20 Attending physician: MACIEJ WOOD 11/11/20 02:34 Consult to Physician [CONS] Stat Comment: Dr. Abdul spoke with Dr. Leary @ 0232 Consulting Provider: XAVI MIRANDA Physician Instructions: Reason For Exam: PID IUD in place 11/11/20 08:58 Consult to Physician [CONS] Routine Comment: Consulting Provider: DONNA VELAZQUEZ Physician Instructions: Reason For Exam: PID Primary care physician: [facility] MD [facility] Hospitalization Reason for admission: Sepsis, PID Condition: Stable Hospital course: 40 female no past medical history admitted with abdominal pain. This began 3 days prior to admission and is located in the right lower quadrant and radiates to her lower back. She was initially seen 2 days ago but eloped without completing her treatment. She initially had some vaginal discharge and has some vaginal bleeding. She does have an IUD in place that has been in place for 18 years. Afebrile with a white count of 15.4. Blood cultures currently pending. Wet prep with no trichomonas, no yeast, greater than or equal to 20% clue cells urine cultures no growth so far. Imaging personally reviewed: CT abdomen pelvis: Fluid-filled structures of the adnexa bilaterally with diffuse pelvic inflammation. Retroperitoneal adenopathy. Transvaginal ultrasound: Uterus unremarkable. The patient was admitted with diagnosis of acute sepsis secondary to pelvic inflammatory disease and bacterial vaginosis. Recommendations were for removal of IUD and continued antibiotics IV per ID recommendations. Unfortunately patient left AMA prior to completion of treatment and procedures. Dedicated discharge time 32 minutes Disposition: [id number] LEFT AGAINST MED ADVICE Core Measure Documentation - Palliative Care Palliative Care/ Comfort Measures: Not Applicable - Core Measures Any of the following diagnoses?: none Exam - Constitutional Vitals: Temp Pulse Resp BP Pulse Ox 98.1 F 89 20 113/73 99 11/11/20 12:05 11/11/20 12:05 11/11/20 12:05 11/11/20 12:05 11/11/20 12:05 Plan Follow up with: SIDRA BARRETT MD [Primary Care Provider] - 7 Days Prescriptions: Doxycycline Hyclate [Doxycycline Hyclate TAB] 100 mg PO BID #28 tablet metroNIDAZOLE [Flagyl] 500 mg PO Q12HR #28 tab Ibuprofen [Motrin] 800 mg PO Q8HR PRN #30 tablet PRN Reason: Pain , Severe (7-10) HYDROcodone/APAP 5-325 [[place] 5/325] 1 each PO Q6HR PRN #15 tablet PRN Reason: Pain
== END 2020-11-11 16:54 | disposition left against medical advice (07) ==
LOC: ED 21:05 → 3A 11-11 02:36
PROVIDERS: ADMIT Internal Medicine Geriatric Medicine; ATTEND Hospitalist
DX: A41.9 Sepsis, unspecified organism (principal); N73.0 Acute parametritis and pelvic cellulitis; N73.9 Female pelvic inflammatory disease, unspecified; N30.00 Acute cystitis without hematuria; N12 Tubulo-interstitial nephritis, not specified as acute or chronic; I10 Essential (primary) hypertension; N76.0 Acute vaginitis; F17.210 Nicotine dependence, cigarettes, uncomplicated; Z90.710 Acquired absence of both cervix and uterus; Z97.5 Presence of (intrauterine) contraceptive device; Z98.890 Other specified postprocedural states; Z98.891 History of uterine scar from previous surgery; Z87.442 Personal history of urinary calculi
CPT/HCPCS: 36415; 74177; 76830; 76856; 80053; 81001; 83690; 84703; 85025; 86850; 86900; 86901; 87040; 87076; 87086; 87186; 96361; 96365; 96366; 96367; 96368; 96375; 99284; 99406; G0378; J0692; J0696; J2270; J2405; J7030; J7050; Q9967